=== PATIENT | female | born 1980 | race Caucasian/White ===

== ENCOUNTER 2020-02-18 12:29 | Emergency (ER) | payer OTHER ==
[~2020-02-18] VITALS: Ht 160 cm; Wt 67.1 kg
--- NOTE | 2020-02-18 12:52 | NUR ---
[email or web address], medical screening exam in progress
[2020-02-18 13:18] LABS: *BILIRUBIN,URIN NEGATIVE (NEGATIVE); *CLARITY,URINE CLEAR (CLEAR); *COLOR,URINE YELLOW (YELLOW); *KETONES,URINE NEGATIVE (NEGATIVE); *UROBILINOGEN,URINE 0.2 E.U./dl (NORMAL); LEUKOCYTE ESTERASE ,URINE NEGATIVE (NEGATIVE); NITRITE, URINE NEGATIVE (NEGATIVE); PH,URINE 5.5 (5.0-8.0); UGLUCOSE NEGATIVE (NEGATIVE)
[2020-02-18 13:19] LABS: *BLOOD, URINE TRACE (NEGATIVE)
[2020-02-18] MEDS ORDERED: IBUPROFEN 800 MG TABLET ONE (13:19)
[2020-02-18 13:20] LABS: BASOPHILS % (AUTO) 0.6 % (0.0-2.0); EOSINOPHILS # (AUTO) 0.1 K/uL (0.0-0.7); EOSINOPHILS % (AUTO) 1.2 % (0.0-7.0); HEMATOCRIT 31.6 % (31.2-41.9); HEMOGLOBIN 10.6 g/dL (10.9-14.3); LYMPHOCYTES # (AUTO) 1.3 K/uL (20.0-40.0); LYMPHOCYTES % (AUTO) 21.4 % (20.5-51.5); MEAN CORPUSCULAR HEMOGLOBIN 28.8 uug (24.7-32.8); MEAN CORPUSCULAR HGB CONC 34 g/dL (32.3-35.6); MEAN CORPUSCULAR VOLUME 85.7 fL (75.5-95.3); MONOCYTES # (AUTO) 0.4 K/uL (2.0-10.0); MONOCYTES % (AUTO) 5.6 % (0.0-11.0); NEUTROPHILS # (AUTO) 4.5 K/uL (1.8-8.9); NEUTROPHILS % (AUTO) 71.2 % (38.5-71.5); PLATELET COUNT (AUTO) 186 K/uL (179-408); RED BLOOD CELL COUNT(AUTO) 3.68 MIL/uL (3.63-4.92); WHITE BLOOD COUNT (AUTO) 6.3 K/uL (3.8-11.8)
[2020-02-18 13:22] LABS: *URINE HCG, QUAL NEGATIVE (NEGATIVE)
[2020-02-18 13:29] LABS: CREATININE 0.7 mg/dL (0.6-1.3); POTASSIUM 3.8 mmol/L (3.5-5.1)
[2020-02-18] MEDS ORDERED: IBUPROFEN 800 MG TABLET PO ONE (13:30)
[2020-02-18 13:35] LABS: BILIRUBIN,DIRECT 0.1 mg/dL (0.0-0.2); BILIRUBIN,TOTAL 0.3 mg/dL (0.2-1.0); TOTAL PROTEIN, SERUM 7.3 g/dL (6.4-8.2)
[2020-02-18] MEDS ORDERED: IV NORMAL SALINE 1000 ML BAG IV ONE (15:15)
[2020-02-18] MEDS ORDERED: IV NORMAL SALINE 250 ML IV ONE (15:22)
[2020-02-18] MEDS ORDERED: IOHEXOL 350 100 ML INFUS..BTL ONE (15:22)
[2020-02-18] MEDS ORDERED: SWABABLE VALVE TRANSFER SET EA MC ONE (15:22)
--- NOTE | 2020-02-18 17:00 | NUR ---
IV removed. Catheter intact and site benign. Pressure and 4x4 gauze applied to site. No bleeding noted. Patient discharged to home in stable condition & brisk steady. Written and verbal after care instructions given to patient. Patient verbalized understanding & compliance of instructions. Stressed follow up with primary doctor or return to ER for worsening s/s.
[2020-02-18 19:40] LABS: BACTERIA,URINE FEW /HPF (NONE SEEN); RBC,URINE 0-3 /HPF (0-3); WBC,URINE NONE SEEN /HPF (0-3)
[2020-02-18 19:41] LABS: SQUAMOUS EPITHELIAL CELL,UR FEW /HPF (NONE SEEN)
== END 2020-02-18 17:02 | disposition home or self-care (01) ==
LOC: ER 12:41
DX: R10.11 Right upper quadrant pain (principal); R07.81 Pleurodynia; R03.0 Elevated blood-pressure reading, without diagnosis of hypertension; R79.1 Abnormal coagulation profile
CPT/HCPCS: 36415; 71045; 71275; 76705; 80048; 80076; 81001; 84703; 85025; 85379; 85730; 99285; Q9967; A4663; J7050